=== PATIENT | male | born 1965 | race Caucasian/White ===

== ENCOUNTER 2017-05-20 16:04 | Emergency (ER) | payer MEDICARE, MEDICAID ==
[~2017-05-20] VITALS: Ht 177.8 cm; Wt 77.1 kg
[~2017-05-20 16:04] MED LIST: 'PARAFON FORTE500 M1 PO; ASPIRIN81 M1 PO; BACTRIM DS 8001 TA1 PO; CATAFLAM50 MG PO; CEPHALEXIN500 M1 PO; CLINDAMYCIN150 MG PO; FLEXERIL10 MG PO; FLEXERIL5 MG PO; GLIPIZIDE AND M1 TA1 PO; GLIPIZIDE10 MG PO; HYDROCODONE BIT1 T11 PO; KEFLEX500 MG PO; KETOROLAC10 MG PO; METFORMIN1000 MG PO; MOTRIN800 MG PO; NAPROSYN500 MG PO; NEURONTIN100 MG PO; NEURONTIN300 MG PO; NEURONTIN400 MG PO; NKHM; NORCO 325 MG-51 TAB PO; NORCO 5-325 TA1 EACH PO; NORFLEX100 MG PO; PERCOCET 325 MG1 TA2 PO; PRILOSEC40 MG PO; TRAMADOL HCL50 MG PO; TYLENOL 8 HOUR650 MG PO; TYLENOL W/CODEI1 TA3 PO; TYLENOL500 MG PO; VICO75300 PO; VICODIN 5/500 505 MG PO; VISTARIL25 M1 PO; ZANAFLEX4 M1 PO; ZITHROMAX Z PA250 MG PO
[2017-05-20] MEDS ORDERED: NAPROSYN500 MG PO (16:11)
[2017-05-20] MEDS ORDERED: CHLORZOXAZONE500 M2 PO (16:11)
== END 2017-05-20 17:05 | disposition left against medical advice (07) ==
LOC: ED 16:04
DX: M54.6 Pain in thoracic spine (principal); Z88.0 Allergy status to penicillin

== ENCOUNTER 2018-09-30 19:29 | Emergency (ER) | payer MEDICARE, MEDICAID ==
[~2018-09-30] VITALS: Ht 187.9 cm; Wt 99.8 kg
[~2018-09-30 19:29] MED LIST changes: +CHLORZOXAZONE500 M2 PO
[2018-09-30] MEDS ORDERED: IBU800 MG PO (21:40)
[2018-09-30] MEDS ORDERED: CYCLOBENZAPRINE10 MG PO (21:40)
== END 2018-09-30 21:47 | disposition home or self-care (01) ==
LOC: ED 19:29
DX: R07.81 Pleurodynia (principal); R06.02 Shortness of breath; R11.0 Nausea; M54.2 Cervicalgia; E11.9 Type 2 diabetes mellitus without complications; F17.210 Nicotine dependence, cigarettes, uncomplicated; Z88.0 Allergy status to penicillin; Z79.899 Other long term (current) drug therapy; X50.0XXA Overexertion from strenuous movement or load, initial encounter; Y93.89 Activity, other specified; Y92.89 Other specified places as the place of occurrence of the external cause; Y99.8 Other external cause status

== ENCOUNTER 2021-09-07 03:03 | Emergency (ER) | payer OTHER, MEDICAID ==
[~2021-09-07] VITALS: Ht 187.9 cm; Wt 79.4 kg
[~2021-09-07 03:03] MED LIST changes: +CYCLOBENZAPRINE10 MG PO; +IBU800 MG PO
[2021-09-07] MEDS ORDERED: VIBRAMYCIN100 MG PO (03:55)
== END 2021-09-07 04:08 | disposition left against medical advice (07) ==
LOC: ED 03:03
DX: L03.114 Cellulitis of left upper limb (principal); Z88.0 Allergy status to penicillin

== ENCOUNTER 2022-03-13 21:46 | Emergency (ER) | payer OTHER, MEDICAID ==
[~2022-03-13] VITALS: Ht 187.9 cm; Wt 90.7 kg
[~2022-03-13 21:46] MED LIST changes: +VIBRAMYCIN100 MG PO
== END 2022-03-13 23:14 | disposition home or self-care (01) ==
LOC: ED 21:46
DX: F43.21 Adjustment disorder with depressed mood (principal); Z88.0 Allergy status to penicillin

== ENCOUNTER 2022-03-15 18:37 | Emergency (ER) | payer OTHER, MEDICAID ==
[~2022-03-15] VITALS: Ht 187.9 cm; Wt 82.6 kg
[2022-03-15 20:34] LABS: BASO # 0.1 10*3/uL (0.0-0.1); BASO % 0.7 % (0.0-1.0); EOS # 0.5 10*3/uL (0.0-0.4); EOS % 5.4 % (1.0-4.0); HEMATOCRIT 46.5 % (42.0-52.0); LYMPH # 0.9 10*3/uL (1.3-4.4); LYMPH % 10.2 % (27.0-41.0); MEAN CELL VOLUME 95.5 fl (80.0-94.0); MEAN CORPUSCULAR HGB 33.5 pg (27.0-31.0); MEAN CORPUSCULAR HGB CONC 35.1 g/dl (33.0-37.0); MEAN PLATELET VOLUME 9.7 fl (9.6-12.3); MONO # 0.7 10*3/uL (0.1-1.0); MONO % 7.9 % (3.0-9.0); NEUT # 6.9 10*3/uL (2.3-7.9); NEUT % 75.6 % (47.0-73.0); PLATELET COUNT AUTOMATED 230 10*3/uL (130-400); RED BLOOD COUNT 4.87 10*6/uL (4.50-5.90); RED CELL DISTRI WIDTH 11.8 % (0-14.5); WHITE BLOOD COUNT 9.1 10*3/uL (4.8-10.8)
[2022-03-15 20:53] LABS: ALKALINE PHOSPHATASE 132 U/L (46-116); BUN 21 mg/dl (9-23); CHLORIDE 100 mmol/L (98-107); POTASSIUM 4.9 mmol/L (3.4-5.1); SGPT/ALT 33 U/L (10-49); TOTAL PROTEIN 7.3 gm/dL (6.0-8.0)
== END 2022-03-15 20:42 | disposition left against medical advice (07) ==
LOC: ED 18:37
PROVIDERS: Emergency Medicine
DX: T50.901A Poisoning by unspecified drugs, medicaments and biological substances, accidental (unintentional), initial encounter (principal); Z88.0 Allergy status to penicillin; Y92.89 Other specified places as the place of occurrence of the external cause

== ENCOUNTER 2022-05-31 21:27 | Emergency (ER) | payer OTHER, MEDICAID ==
[~2022-05-31] VITALS: Ht 182.8 cm; Wt 72.6 kg
[2022-05-31 22:30] LABS: HEMATOCRIT 46.4 % (42.0-52.0); MEAN CELL VOLUME 94.9 fl (80.0-94.0); MEAN CORPUSCULAR HGB 33.7 pg (27.0-31.0); MEAN CORPUSCULAR HGB CONC 35.6 g/dl (33.0-37.0); MEAN PLATELET VOLUME 9.4 fl (9.6-12.3); PLATELET COUNT AUTOMATED 277 10*3/uL (130-400); RED BLOOD COUNT 4.89 10*6/uL (4.50-5.90); RED CELL DISTRI WIDTH 11.3 % (0-14.5); WHITE BLOOD COUNT 7.7 10*3/uL (4.8-10.8)
[2022-05-31 22:31] LABS: MANUAL DIFF REFLEX YES
[2022-05-31 22:45] LABS: ALKALINE PHOSPHATASE 140 U/L (46-116); BUN 9 mg/dl (9-23); CHLORIDE 101 mmol/L (98-107); POTASSIUM 4.1 mmol/L (3.4-5.1); SGPT/ALT 15 U/L (10-49); TOTAL PROTEIN 7.8 gm/dL (6.0-8.0)
[2022-05-31 22:59] LABS: PLATELET SUFFICIENCY NORMAL (NORMAL); TOTAL CELLS COUNTED 100 #CELLS
[2022-05-31] MEDS ORDERED: CLINDAMYCIN HC300 MG PO (23:14)
[2022-05-31] MEDS ORDERED: VIBRAMYCIN100 MG PO (23:15)
== END 2022-05-31 23:15 | disposition left against medical advice (07) ==
LOC: ED 21:27
PROVIDERS: Emergency Medicine
DX: L03.114 Cellulitis of left upper limb (principal); L02.512 Cutaneous abscess of left hand; Z88.0 Allergy status to penicillin; F17.200 Nicotine dependence, unspecified, uncomplicated

== ENCOUNTER 2022-10-03 18:26 | Emergency (ER) | payer OTHER, MEDICAID ==
[~2022-10-03] VITALS: Ht 187.9 cm; Wt 76.2 kg
[~2022-10-03 18:26] MED LIST changes: +CLINDAMYCIN HC300 MG PO
[2022-10-03 20:08] LABS: BASO # 0.1 10*3/uL (0.0-0.1); BASO % 1.1 % (0.0-1.0); EOS # 0.3 10*3/uL (0.0-0.4); EOS % 7.4 % (1.0-4.0); LYMPH # 1.2 10*3/uL (1.3-4.4); LYMPH % 26.4 % (27.0-41.0); MEAN CELL VOLUME 96.9 fl (80.0-94.0); MEAN CORPUSCULAR HGB 34.1 pg (27.0-31.0); MEAN CORPUSCULAR HGB CONC 35.3 g/dl (33.0-37.0); MEAN PLATELET VOLUME 9.9 fl (9.6-12.3); MONO # 0.6 10*3/uL (0.1-1.0); MONO % 13.3 % (3.0-9.0); NEUT # 2.3 10*3/uL (2.3-7.9); NEUT % 51.8 % (47.0-73.0); PLATELET COUNT AUTOMATED 183 10*3/uL (130-400); RED BLOOD COUNT 4.13 10*6/uL (4.50-5.90); RED CELL DISTRI WIDTH 11.6 % (0-14.5); WHITE BLOOD COUNT 4.4 10*3/uL (4.8-10.8)
[2022-10-03 20:31] LABS: ALKALINE PHOSPHATASE 115 U/L (46-116); BUN 17 mg/dl (9-23); CHLORIDE 102 mmol/L (98-107); POTASSIUM 4.1 mmol/L (3.4-5.1); SGPT/ALT 24 U/L (10-49); TOTAL PROTEIN 6.1 gm/dL (6.0-8.0)
[2022-10-03 20:44] LABS: ETHYL ALCOHOL < 3.0 mg/dl (<3)
== END 2022-10-04 05:59 | disposition left against medical advice (07) ==
LOC: ED 18:26
PROVIDERS: Physician Assistant Medical
DX: E11.65 Type 2 diabetes mellitus with hyperglycemia (principal); M79.604 Pain in right leg; Z59.00 Homelessness unspecified; Z88.0 Allergy status to penicillin; Z98.890 Other specified postprocedural states; Z87.891 Personal history of nicotine dependence; Z79.899 Other long term (current) drug therapy

== ENCOUNTER 2022-10-09 00:59 | Emergency (ER) | payer OTHER, MEDICAID ==
[~2022-10-09] VITALS: Ht 187.9 cm; Wt 68.0 kg
== END 2022-10-09 03:54 | disposition home or self-care (01) ==
LOC: ED 00:59
DX: S39.012A Strain of muscle, fascia and tendon of lower back, initial encounter (principal); M25.561 Pain in right knee; M25.522 Pain in left elbow; E11.9 Type 2 diabetes mellitus without complications; Z88.0 Allergy status to penicillin; Z98.890 Other specified postprocedural states; X58.XXXA Exposure to other specified factors, initial encounter; Y93.89 Activity, other specified; Y92.89 Other specified places as the place of occurrence of the external cause; Y99.8 Other external cause status

== ENCOUNTER 2022-10-28 03:18 | Emergency (ER) | payer OTHER, MEDICAID ==
[~2022-10-28] VITALS: Ht 187.9 cm; Wt 81.6 kg
== END 2022-10-28 03:54 | disposition left against medical advice (07) ==
LOC: ED 03:18
DX: G47.00 Insomnia, unspecified (principal); Z88.0 Allergy status to penicillin; Z53.21 Procedure and treatment not carried out due to patient leaving prior to being seen by health care provider

== ENCOUNTER 2022-11-11 06:52 | Emergency (ER) | payer OTHER, MEDICAID ==
[~2022-11-11] VITALS: Ht 187.9 cm; Wt 81.6 kg
[2022-11-11 07:26] LABS: BASO % 0.7 % (0.0-1.0); EOS # 0.3 10*3/uL (0.0-0.4); EOS % 4.5 % (1.0-4.0); HEMATOCRIT 44.6 % (42.0-52.0); LYMPH # 1.2 10*3/uL (1.3-4.4); MEAN CORPUSCULAR HGB 33.6 pg (27.0-31.0); MEAN CORPUSCULAR HGB CONC 34.3 g/dl (33.0-37.0); MONO # 0.5 10*3/uL (0.1-1.0); MONO % 9.8 % (3.0-9.0); NEUT # 3.5 10*3/uL (2.3-7.9); NEUT % 62.8 % (47.0-73.0); PLATELET COUNT AUTOMATED 203 10*3/uL (130-400); RED BLOOD COUNT 4.55 10*6/uL (4.50-5.90); RED CELL DISTRI WIDTH 11.4 % (0-14.5); WHITE BLOOD COUNT 5.5 10*3/uL (4.8-10.8)
[2022-11-11 07:43] LABS: ACT PARTIAL THROMBO TIME 28.9 SECONDS (20.0-32.1)
[2022-11-11 08:05] LABS: ALKALINE PHOSPHATASE 143 U/L (46-116); BUN 16 mg/dl (9-23); CHLORIDE 100 mmol/L (98-107); LIPASE 81 U/L (12-53); POTASSIUM 4.1 mmol/L (3.4-5.1); SGPT/ALT 26 U/L (10-49); TOTAL PROTEIN 7.1 gm/dL (6.0-8.0)
[2022-11-12] MEDS ORDERED: VIBRAMYCIN100 MG PO (01:07)
== END 2022-11-11 08:33 | disposition home or self-care (01) ==
LOC: ED 06:52
PROVIDERS: Internal Medicine
DX: E11.65 Type 2 diabetes mellitus with hyperglycemia (principal); F17.210 Nicotine dependence, cigarettes, uncomplicated; Z88.0 Allergy status to penicillin; Z98.890 Other specified postprocedural states; Z59.00 Homelessness unspecified

== ENCOUNTER 2022-11-11 23:14 | Emergency (ER) | payer OTHER, MEDICAID ==
[2022-11-12] MEDS ORDERED: VIBRAMYCIN100 MG PO (01:07)
== END 2022-11-11 23:23 | disposition left against medical advice (07) ==
LOC: ED 23:14
DX: T14.8XXA Other injury of unspecified body region, initial encounter (principal); Z53.21 Procedure and treatment not carried out due to patient leaving prior to being seen by health care provider; Z88.0 Allergy status to penicillin; Z79.2 Long term (current) use of antibiotics; Z98.890 Other specified postprocedural states; W54.0XXA Bitten by dog, initial encounter; Y93.89 Activity, other specified; Y92.89 Other specified places as the place of occurrence of the external cause; Y99.8 Other external cause status

== ENCOUNTER 2022-11-12 00:45 | Emergency (ER) | payer OTHER, MEDICAID ==
[~2022-11-12] VITALS: Ht 182.8 cm; Wt 65.8 kg
[2022-11-12] MEDS ORDERED: VIBRAMYCIN100 MG PO (01:07)
== END 2022-11-12 01:39 | disposition home or self-care (01) ==
LOC: ED 00:45
DX: S71.132A Puncture wound without foreign body, left thigh, initial encounter (principal); Z88.0 Allergy status to penicillin; Z98.890 Other specified postprocedural states; W54.0XXA Bitten by dog, initial encounter; Y93.89 Activity, other specified; Y92.89 Other specified places as the place of occurrence of the external cause; Y99.8 Other external cause status

== ENCOUNTER 2023-04-28 19:49 | Emergency (ER) | payer OTHER, MEDICAID ==
[~2023-04-28] VITALS: Ht 175.2 cm; Wt 70.3 kg
[2023-04-28] MEDS ORDERED: Naloxone Hydrochloride 2 MG/2 ML SYR ONE (19:55)
[2023-04-28] MEDS ORDERED: Naloxone Hydrochloride 2 MG/2 ML SYR IV ONE (20:05)
== END 2023-04-28 20:06 | disposition left against medical advice (07) ==
LOC: ED 19:49
DX: T50.901A Poisoning by unspecified drugs, medicaments and biological substances, accidental (unintentional), initial encounter (principal); Z53.29 Procedure and treatment not carried out because of patient's decision for other reasons; E11.9 Type 2 diabetes mellitus without complications; Z88.0 Allergy status to penicillin; Z98.890 Other specified postprocedural states; Y92.89 Other specified places as the place of occurrence of the external cause